=== PATIENT | female | born 1975 | race Two or more races ===

== ENCOUNTER → 2024-04-03 | Outpatient (CLI) | payer MEDICAID, SELFPAY ==
--- NOTE | 2024-04-03 11:00 | XR_ITS ---
Examination: Ultrasound soft tissue elbow TECHNIQUE: Sonographic soft tissue images left elbow Exam date and time: April 03, 2024 1107 hours INDICATIONS: Left elbow swelling and pain beginning 4 months ago. FINDINGS: No cystic or solid masses noted No edema IMPRESSION: No cystic or solid masses noted Consider MRI elbow without contrast follow-up as clinically warranted
--- NOTE | 2024-04-03 11:30 | XR_ITS ---
Examination: Left elbow 3 views Technique: Elbow AP, oblique, lateral 3 views Exam date and time: April 03, 2024 1137 hours INDICATIONS: Left elbow pain 4 months FINDINGS: Mild osteopenia No fracture or dislocation No elbow effusion IMPRESSION: No fracture or arthritic change.
== END | disposition home or self-care (01) ==
PROVIDERS: PCP Registered Nurse Community Health; Referring Provider Registered Nurse Community Health; Visit Provider Registered Nurse Community Health
DX: M25.522 Pain in left elbow (principal); R22.32 Localized swelling, mass and lump, left upper limb; R60.9 Edema, unspecified
CPT/HCPCS: 73080; 76882